=== PATIENT | female | born 1970 | race African-American/Black ===

== ENCOUNTER 2017-03-08 16:12 | Emergency (ER) | payer MEDICAID, OTHER ==
[2017-03-08 16:42] VITALS: BP 145/88
--- NOTE | 2017-03-08 17:21 | UC ---
Neck Pain HPI - HPI Summary HPI Summary: right side neck pain x 3 weeks no known injury , no radiation of the pain worse with neck movement better with rest - History of Current Complaint Chief Complaint: UCGeneralIllness Stated Complaint: NECK PAIN Time Seen by Provider: 03/08/17 17:07 Hx Obtained From: Patient Hx Last Menstrual Period: 03/06/17 ?: No Onset/Duration Of Injury/Symptoms: Weeks - 3 Timing: Constant Onset/Duration: Gradual Onset, Lasting Weeks - 3, Still Present Severity: Moderate Location: Discrete At: - neck Character: Aching, Stiff Aggravating Factors: Movement Alleviating Factors: Heat, Message Associated Signs & Symptoms: Negative: Swelling, Redness, Bruising, Fever, Nuchal Rigity, Weakness, Headache, Paresthesia - Allergies/Home Medications Allergies/Adverse Reactions: Allergies Allergy/AdvReac Type Severity Reaction Status Date / Time No Known Allergies Allergy Verified 03/08/17 16:42 PMH/Surg Hx/FS Hx/Imm Hx - Additional Past Medical History Additional PMH: pmhx of CP - Surgical History Surgical History: Yes Surgery Procedure, Year, and Place: RESET OF MEDICALLY INDUCED FX TOE 1R--1989. HEEL CORD LENGTHENING SX-RLE--IN [facility] - Family History Known Family History: Negative: Diabetes - Social History Alcohol Use: Occasionally Substance Use Type: None Smoking Status (MU): Never Smoked Tobacco Review Of Systems Constitutional: Positive: Negative Skin: Positive: Negative Eyes: Positive: Negative ENT: Positive: Negative Respiratory: Positive: Negative All Other Systems Reviewed And Are Negative: Yes Physical Exam Triage Information Reviewed: Yes Appearance: Well-Appearing, No Pain Distress, Well-Nourished Vital Signs: Initial Vital Signs Temp 98.1 F 03/08/17 16:37 Pulse 89 03/08/17 16:37 Resp 16 03/08/17 16:37 BP 145/88 03/08/17 16:37 Pulse Ox 100 03/08/17 16:37 Vital Signs Reviewed: Yes Eyes: Positive: Conjunctiva Clear ENT: Positive: Normal ENT inspection, Hearing grossly normal, Pharynx normal Neck: Positive: Tenderness @, Other: - limited ROM on rotation Respiratory Exam: Normal Respiratory: Positive: Chest non-tender, Lungs clear, Normal breath sounds Cardiovascular: Positive: RRR, No Murmur, Pulses Normal Skin Exam: Normal Neck Pain Course/Dx - Differential Dx/Diagnosis Provider Diagnoses: neck strain Discharge - Discharge Plan Condition: Stable Disposition: HOME Prescriptions: Cyclobenzaprine TAB* [Flexeril 10 MG TAB*] 10 mg PO BID #20 tab Naproxen [Naproxen 500 mg] 500 mg PO BID #20 tab Patient Education Materials: Acute Neck Pain (ED) Referrals: No Primary Care Phys,NOPCP [Primary Care Provider] - 7 Days
== END 2017-03-08 17:19 | disposition home or self-care (01) ==
LOC: UCCORT 16:12
DX: S16.1XXA Strain of muscle, fascia and tendon at neck level, initial encounter (principal); X58.XXXA Exposure to other specified factors, initial encounter
CPT/HCPCS: 99212; G0463